=== PATIENT | female | born 1965 | race Caucasian/White ===

== ENCOUNTER 2019-08-04 21:07 | Emergency (ER) | payer OTHER ==
[~2019-08-04] VITALS: Ht 165.1 cm; Wt 63.5 kg
--- NOTE | 2019-08-04 21:15 | NUR ---
Dr. Perdomo at bedside for MSE
[2019-08-04] MEDS ORDERED: diphenhydrAMINE 50 MG CAPSULE ONE (21:25)
--- NOTE | 2019-08-04 21:28 | NUR ---
Patient discharged to home in stable condition. Written and verbal after care instructions given. Patient verbalizes understanding of instructions. Stressed follow up or return to ER for worsening s/s. AA/Ox4. able to speak in complete sentences. follows commands respirations even and unlabored no s/s of distress all belongings with pt ambulatory with steady gait instructed pt not to drive Pt's nephew will drive pt home
[2019-08-04] MEDS ORDERED: diphenhydrAMINE 50 MG CAPSULE PO ONE (21:30)
[2019-08-04 21:34] VITALS: BP 133/75
== END 2019-08-04 21:28 | disposition home or self-care (01) ==
LOC: ER 21:10
DX: S80.261A Insect bite (nonvenomous), right knee, initial encounter (principal); S80.862A Insect bite (nonvenomous), left lower leg, initial encounter; W57.XXXA Bitten or stung by nonvenomous insect and other nonvenomous arthropods, initial encounter; Y92.89 Other specified places as the place of occurrence of the external cause; L29.9 Pruritus, unspecified
CPT/HCPCS: 99283; Q0163; A4663